=== PATIENT | male | born 1960 | race Caucasian/White ===

== ENCOUNTER 2022-05-03 19:16 | Inpatient (IN) ==
[2022-05-03 19:59] LABS: Bilirubin,Urine Negative (Negative); Blood,Urine Negative (Negative); Clarity,Urine Clear (Clear); Color,Urine Yellow (Yellow); Glucose,Urine (UA) Normal (Normal); Ketones,Urine Negative (Negative); Leukocyte Esterase,Urine Negative (Negative); Mucus,Urine Few per lpf (None-Few); Nitrite,Urine Negative (Negative); PH,Urine 7.5 pH Units (5.0-8.0); Protein,Urine 30 mg/dL (Neg-Trace); RBC,Urine 0-3 per hpf (0-3); Specific Gravity,Urine 1.024 (1.010-1.025); WBC,Urine 0-3 per hpf (0-3)
[2022-05-03 20:05] LABS: Basophils # 0.1 K/mcL (0.0-0.2); Basophils % 0.8 %; Eosinophils # 0.2 K/mcL (0.0-0.6); Eosinophils % 1.8 %; Hematocrit 37.7 % (37.5-50.1); Hemoglobin 12.7 g/dL (12.9-16.9); Immature Granulocytes % 0.3 % (0-4); Lymphocytes # 1.7 K/mcL (0.6-4.6); Lymphocytes % 16.7 %; Mean Corpuscular HGB Conc 33.7 g/dL (31.6-35.5); Mean Corpuscular Hemoglobin 31.8 pg (28.0-33.3); Mean Corpuscular Volume 94.5 fL (83.0-100.0); Mean Platelet Volume 10.7 fL (9.4-12.4); Monocytes # 1.1 K/mcL (0.0-1.3); Platelet Count 236 K/mcL (140-400); Red Blood Count 3.99 M/mcL (4.19-5.50); Red Cell Distribution Width 12.8 % (11.5-14.5); Segmented Neutrophils % 69.4 %
[2022-05-03 20:13] LABS: Amphetamine Screen,Urine Negative ng/mL (Cutoff=1000); Barbiturate Screen,Urine Negative ng/mL (Cutoff=200); Benzodiazepines Screen,Urine Negative ng/mL (Cutoff=200); Cannabinoid Screen,Urine Negative ng/mL (Cutoff = 50); Cocaine Screen,Urine Negative ng/mL (Cutoff= 300); Opiate Screen,Urine Negative ng/mL (Cutoff=300); Phencyclidine Screen,Urine Negative ng/mL (Cutoff=25)
[2022-05-03 20:24] LABS: Estimated Average Glucose 105 mg/dl; Hemoglobin A1C 5.3 %
[2022-05-03 20:25] LABS: Acetaminophen < 10 mcg/mL (10-20); BUN/Creatinine Ratio 18 (6-26); Blood Urea Nitrogen 16 mg/dL (8-23); Calcium 9.5 mg/dL (8.6-10.3); Carbon Dioxide 25 mEq/L (23-29); Chloride 108 mEq/L (98-107); Chol/HDL Ratio 3.8 (0-4.9); Cholesterol 144 mg/dL (< 200); Ethanol < 10 mg/dL (Less than 10); Glucose 106 mg/dL (70-105); HDL Cholesterol 38 mg/dL (40-59); LDL Cholesterol,Calculated 52 mg/dL (< 100); Osmolality,Calculated 294 (280-300); Salicylate < 2.5 mg/dL (15.0-30.0); Sodium 141 mEq/L (136-145); Triglycerides 268 mg/dL (< 150); eGFR For African Americans > 60 (> 60); eGFR For Non-African Americans > 60 (> 60)
[2022-05-03 22:24] LABS: Influenza A PCR Negative (Negative); Influenza B PCR Negative (Negative); Resp. Syncytial Virus PCR Negative (Negative)
[2022-05-03 22:27] LABS: SARS-CoV-2 by PCR (In House) Negative (Negative)
[2022-05-03] MEDS ORDERED: *HR* LORazepam 1 MG TABLET PO ONE (23:03)
[2022-05-04] MEDS ORDERED: traZODone 50 MG TABLET PO PRN (01:01)
[2022-05-04] MEDS ORDERED: *HR* LORazepam 2 MG/ML VIAL IM PRN (01:01)
[2022-05-04] MEDS ORDERED: Ibuprofen 400 MG TABLET PO PRN (01:01)
[2022-05-04] MEDS ORDERED: *HR* LORazepam 1 MG TABLET PO PRN (01:01)
[2022-05-04] MEDS: hydrOXYzine pamoate 25 MG CAPSULE PO PRN (02:00)
[2022-05-04] MEDS: Nicotine 14 MG PATCH.TD24 TD SCH (09:19)
[2022-05-04] MEDS ORDERED: Ziprasidone 20 MG, Closed System Device IM Kit 1 EACH in Water for inj. (sterile) 1 ML IM PRN (11:06)
[2022-05-04] MEDS: *HR* LORazepam 1 MG TABLET PO SCH ×2 (15:10→20:40)
[2022-05-04] MEDS: carBAMazepine 200 MG TABLET PO SCH ×2 (15:10→20:41)
[2022-05-04] MEDS: cloZAPine 100 MG TABLET PO SCH (20:39)
[2022-05-04] MEDS: Melatonin 3 MG TABLET PO SCH (20:40)
[2022-05-04] MEDS: FluPHENAZine 10 MG TABLET PO SCH (20:40)
[2022-05-04] MEDS: lamoTRIgine 25 MG TABLET PO SCH (20:40)
[2022-05-04] MEDS: traZODone 50 MG TABLET PO SCH (20:41)
[2022-05-04] MEDS ORDERED: cloZAPine 100 MG TABLET PO SCH (21:00)
[2022-05-05] MEDS: cloZAPine 100 MG TABLET PO SCH ×2 (08:38→20:47)
[2022-05-05] MEDS: Aspirin Enteric Coated 81 MG Tablet PO SCH (08:39)
[2022-05-05] MEDS: carBAMazepine 200 MG TABLET PO SCH ×3 (08:39→20:49)
[2022-05-05] MEDS: *HR* LORazepam 1 MG TABLET PO SCH ×3 (08:40→20:46)
[2022-05-05] MEDS: Nicotine 14 MG PATCH.TD24 TD SCH (08:40)
[2022-05-05] MEDS: lamoTRIgine 25 MG TABLET PO SCH (20:48)
[2022-05-05] MEDS: Melatonin 3 MG TABLET PO SCH (20:48)
[2022-05-05] MEDS: FluPHENAZine 10 MG TABLET PO SCH (20:49)
[2022-05-05] MEDS: traZODone 50 MG TABLET PO SCH (20:50)
[2022-05-06] MEDS: Aspirin Enteric Coated 81 MG Tablet PO SCH (08:34)
[2022-05-06] MEDS: carBAMazepine 200 MG TABLET PO SCH ×3 (08:36→20:21)
[2022-05-06] MEDS: cloZAPine 100 MG TABLET PO SCH ×2 (08:36→20:20)
[2022-05-06] MEDS: *HR* LORazepam 1 MG TABLET PO SCH ×3 (08:37→16:35)
[2022-05-06] MEDS: Nicotine 14 MG PATCH.TD24 TD SCH (08:38)
[2022-05-06] MEDS: hydrOXYzine pamoate 25 MG CAPSULE PO PRN ×2 (13:39→20:55)
[2022-05-06] MEDS ORDERED: Atropine 1% Opth Drops 100 DROP/5 ML BOTTLE SL SCH (15:00)
[2022-05-06] MEDS: Atropine Sulfate 1% 40 DROP/2 ML BOTTLE SL SCH ×2 (15:30→20:17)
[2022-05-06] MEDS: traZODone 50 MG TABLET PO SCH (20:18)
[2022-05-06] MEDS: Melatonin 3 MG TABLET PO SCH (20:18)
[2022-05-06] MEDS: lamoTRIgine 25 MG TABLET PO SCH (20:19)
[2022-05-06] MEDS: FluPHENAZine 10 MG TABLET PO SCH (20:20)
[2022-05-07] MEDS: Nicotine 14 MG PATCH.TD24 TD SCH (09:31)
[2022-05-07] MEDS: cloZAPine 100 MG TABLET PO SCH ×2 (09:32→20:06)
[2022-05-07] MEDS: *HR* LORazepam 1 MG TABLET PO SCH ×3 (09:34→16:18)
[2022-05-07] MEDS: carBAMazepine 200 MG TABLET PO SCH ×3 (09:34→20:07)
[2022-05-07] MEDS: Aspirin Enteric Coated 81 MG Tablet PO SCH (09:34)
[2022-05-07] MEDS: Atropine Sulfate 1% 40 DROP/2 ML BOTTLE SL SCH ×3 (09:35→20:13)
[2022-05-07] MEDS: hydrOXYzine pamoate 25 MG CAPSULE PO PRN (16:45)
[2022-05-07] MEDS: FluPHENAZine 10 MG TABLET PO SCH (20:06)
[2022-05-07] MEDS: Melatonin 3 MG TABLET PO SCH (20:06)
[2022-05-07] MEDS: traZODone 50 MG TABLET PO SCH (20:06)
[2022-05-07] MEDS: lamoTRIgine 25 MG TABLET PO SCH (20:07)
[2022-05-08] MEDS: cloZAPine 100 MG TABLET PO SCH (09:05)
[2022-05-08] MEDS: *HR* LORazepam 1 MG TABLET PO SCH ×2 (09:06→11:52)
[2022-05-08] MEDS: carBAMazepine 200 MG TABLET PO SCH ×2 (09:06→13:56)
[2022-05-08] MEDS: Aspirin Enteric Coated 81 MG Tablet PO SCH (09:06)
[2022-05-08] MEDS: Nicotine 14 MG PATCH.TD24 TD SCH (09:08)
[2022-05-08 09:55] VITALS: BP 124/80; PULSE 104; TEMP 96.2; O2SAT 99
[2022-05-08] MEDS: Atropine Sulfate 1% 40 DROP/2 ML BOTTLE SL SCH ×2 (10:14→14:23)
[2022-05-08] MEDS: hydrOXYzine pamoate 25 MG CAPSULE PO PRN (13:56)
== END 2022-05-08 17:05 | disposition home or self-care (01) | DRG 885 ==
LOC: EMEROOARM 19:16 → 1ANU 05-04 00:22
PROVIDERS: ADMIT Psychiatry & Neurology Forensic Psychiatry; ATTEND Psychiatry & Neurology Forensic Psychiatry